=== PATIENT | female | born 1985 | race Caucasian/White ===

== ENCOUNTER 2020-05-26 05:41 | Emergency (ER) | payer BC, OTHER ==
[2020-05-26] MEDS ORDERED: KETOROLAC TROMETHAMINE 60 MG/2 ML SDV IM ONE (06:46)
--- NOTE | 2020-05-26 06:55 | ER Document Report ---
ED General - General Chief Complaint: Headache Stated Complaint: HEADACHE,CHILLS,FEVER,NAUSEA Time Seen by Provider: 05/26/20 06:06 Primary Care Provider: NAI SOUZA PA-C [Primary Care Provider] - Follow up as needed TRAVEL OUTSIDE OF THE [place] IN LAST 30 DAYS: No - HPI Notes: Chief complaint: Headache/neck pain History of present illness: 35-year-old female 2 para 2 with last menses 2 weeks ago described as normal presents for evaluation of intermittent headache for 3 to 4 days. She states she has had similar headaches which have been attributed to muscular tension in the past. She actually had a virtual visit with her doctor yesterday and was told that this is most probably a recurrent muscular tension headache. They were going to prescribe a muscle relaxer for her but pharmacy was already closed and so she has had no medication overnight. She presently describes her headache as 3/10 intensity and it is bitemporal and radiates to the base of the neck. There is no associated photophobia, nausea or vomiting. She denies nasal congestion, cough or sore throat. She has had no fever. She has no focal neurologic symptoms. She took some [id number] Tylenol with partial but incomplete relief. Patient denies any known exposure to COVID positive individuals. She is not working in public. She has had no travel outside the area. Patient is on oral contraceptives no other medications. She has no known allergies. Denies use of tobacco, alcohol or any type of drugs. - Related Data Allergies/Adverse Reactions: No Known Allergies Allergy (Verified 01/06/13 03:43) Past Medical History - General Information source: Patient - Social History Smoking Status: Never Smoker Frequency of alcohol use: Social Drug Abuse: None Lives with: Family Family History: Reviewed & Not Pertinent - Medical History Medical History: Negative Psychiatric Medical History: Reports: Hx Depression Review of Systems - Review of Systems Notes: Constitutional: Negative for fever. HENT: As per HPI. Eyes: Negative for visual changes. Cardiovascular: Negative for chest pain. Respiratory: As per HPI. Gastrointestinal: Negative for abdominal pain, vomiting or diarrhea. Genitourinary: Negative for dysuria. Musculoskeletal: Negative for back pain. Skin: Negative for rash. Neurological: As per HPI. 10 point ROS negative except as marked above and in HPI. Physical Exam - Vital signs Vitals: Temp Pulse Resp BP Pulse Ox 99.0 F 99 17 142/82 H 100 05/26/20 05:50 05/26/20 05:50 05/26/20 05:50 05/26/20 05:50 05/26/20 05:50 - Notes Notes: GENERAL: Female patient of approximately stated age appearing in no acute distress. SKIN: Good turgor no rashes. HEAD: Normocephalic atraumatic. Mild muscular tenderness over temporal area of the scalp bilaterally. EYES: PERRLA. EOMI. Conjunctivae and sclerae clear. EARS: CANALS AND TMS CLEAR. NOSE: CLEAR. MOUTH: Moist mucosa. Good dentition. No stridor or edema. No drooling. NECK: Mild tenderness over the posterior cervical muscles bilaterally. Supple. No masses or thyromegaly. No adenopathy. Carotids 2+ without bruits. No JVD. BACK: Symmetrical without tenderness. CHEST: Respirations unlabored. Breath sounds clear and symmetrical. HEART: Regular rhythm. No murmur gallop or rub. ABDOMEN: Soft nontender without masses, organomegaly or rebound. Bowel sounds normally active. No bruits. GENITALIA: Deferred. EXTREMITIES: No edema. No calf tenderness. Cap refill less than 1.5 seconds. Dorsalis pedis and posterior tibial pulses 3+ and symmetrical. NEUROLOGICAL: GCS 15. Alert and oriented x3. Normal gait. Fluent speech. Cranial nerves II through XII intact. Sensorimotor and cerebellar normal. Normal tone. PSYCHIATRIC: Appropriate affect. Course - Re-evaluation Re-evalutation: 05/26/20 06:55 No red flag signs or symptoms are identified. I think this is in all probability a muscular contraction headache. I will give the patient a single dose of IM Toradol and will send her out with an NSAID and a muscle relaxer and have her follow-up with primary care doctor. I cautioned her regarding need to return if there is failure to improve these interventions or if she develops new or worsening symptoms. Findings, clinical impression and plan of treatment have been discussed with patient/family. Understanding of current findings and recommendations has been acknowledged by them and there is agreement regarding disposition and follow-up. - Vital Signs Vital signs: Temp Pulse Resp BP Pulse Ox 99.0 F 99 17 142/82 H 100 05/26/20 05:50 05/26/20 05:50 05/26/20 05:50 05/26/20 05:50 05/26/20 05:50 Discharge - Discharge Clinical Impression: Muscle contraction headache Condition: Stable Disposition: HOME, SELF-CARE Instructions: Toradol Injection ([facility]) Additional Instructions: Headache The physician does not feel that the headache you are experiencing has a serious underlying cause. Most headaches are due to emotional stress, with resultant muscle tension (tension headache). Occasionally, headaches are secondary to changes in the blood vessels of the scalp (vascular headache and migraine headache). Sometimes, a headache is the first symptom of another developing illness, such as a viral infection. You have no evidence of stroke, bleeding, meningitis, or other serious cause of your headache. The treatment of headaches varies with the severity and cause of the pain. Not all headaches need pain shots. In fact, there is evidence that using narcotics for headaches may make them worse in the long run. The physician will determine the therapy that's in your best interest. If you develop a fever, if the headache is different from any you've previously experienced, or if the headache progressively worsens, then call your physician at once or go to the emergency room. Return here as needed for new or worsening symptoms: Pain that is worsening or unimproved Uncontrolled vomiting High fever or shaking chills Overall worsening Take prescribed medications as directed. Follow-up with your primary care physician within the next 72 hours. Prescriptions: Cyclobenzaprine HCl [Flexeril 10 mg Tablet] 10 mg PO TIDP PRN #15 tab PRN Reason: Naproxen 500 mg PO BID PRN 7 Days #14 tablet PRN Reason: Referrals: NAI SOUZA PA-C [Primary Care Provider] - Follow up as needed
[2020-05-26 07:07] VITALS: BP 140/79
== END 2020-05-26 07:04 | disposition home or self-care (01) ==
LOC: ER 05:41
DX: R51 Headache (principal); Z79.3 Long term (current) use of hormonal contraceptives
CPT/HCPCS: 99283; 96372; J1885